=== PATIENT | male | born 1950 ===

== ENCOUNTER 2021-04-23 05:45 | Day surgery (SDC) | payer OTHER, BC ==
[~2021-04-23 05:45] MED LIST: AMLODIP PO; ATORVASTATIN CA40 MG PO; CARV PO; CHILDREN'S ASPI81 MG PO
== END 2021-04-23 15:35 | disposition home or self-care (01) ==
LOC: CIR.AMB 05:45
PROVIDERS: ATTEND Surgery
DX: K43.0 Incisional hernia with obstruction, without gangrene (principal); Z20.822 Contact with and (suspected) exposure to COVID-19